=== PATIENT | female | born 1995 | race Caucasian/White ===

== ENCOUNTER 2017-03-08 14:16 | Emergency (ER) | payer OTHER ==
[2017-03-08 14:22] VITALS: BP 121/74; PULSE 83; RESP 20; TEMP 98.2; O2SAT 100
--- NOTE | 2017-03-08 14:52 | PD ---
HPI Chief Complaint: Chest Pain Time Seen by Provider: 14:30 Travel History International Travel<30 days: No Contact w/Intl Traveler<30days: No Traveled to known affect area: No History of Present Illness HPI The patient was seen and examined in the presence of the nurse. This patient complains of chest pain. Duration is 3 days. Severity is moderate. Location is left sternal border. No injury. No fever or cough. Cardiac or pulmonary disease in her history. Alleviating factors. No pleuritic nature to the pain and it is not exertional PFSH Past Medical History Medical History: Denies Significant Hx ?: Not LMP: 1 1/2 MONTHS Past Surgical History Surgical History: No Previous Surgery Social History Alcohol Use: No Tobacco Use: No Allergies-Medications (Allergen,Severity, Reaction): Coded Allergies: No Known Allergies (Unverified , 03/08/17) Reported Meds & Prescriptions Reported Meds & Active Scripts Active No Active Prescriptions or Reported Medications Review of Systems General / Constitutional: No: Fever Eyes: No: Visual changes HENT: No: Headaches Cardiovascular: Positive: Chest Pain or Discomfort Respiratory: No: Shortness of Breath Gastrointestinal: No: Abdominal Pain Genitourinary: No: Dysuria Musculoskeletal: No: Pain Skin: No Rash Neurologic: No: Weakness Psychiatric: No: Depression Endocrine: No: Polydipsia Hematologic/Lymphatic: No: Easy Bruising Physical Exam Narrative GENERAL: Well-nourished, well-developed patient in no apparent distress. SKIN: Focused skin assessment reveals no rash and nodules. Skin is Warm and dry. HEAD: Atraumatic. Normocephalic. EYES: Pupils equal and round. No scleral icterus. No injection or drainage. ENT: No nasal bleeding or discharge. Mucous membranes pink and moist. NECK: Trachea midline. No JVD. CARDIOVASCULAR: Regular rate and rhythm. No murmur appreciated. RESPIRATORY: No accessory muscle use. Clear to auscultation. Breath sounds equal bilaterally. GASTROINTESTINAL: Abdomen soft, non-tender, nondistended. Hepatic and splenic margins not palpable. MUSCULOSKELETAL: No obvious deformities. No clubbing. No cyanosis. No edema. NEUROLOGICAL: Awake and alert. No obvious cranial nerve deficits. Motor grossly within normal limits. Normal speech. PSYCHIATRIC: Appropriate mood and affect; insight and judgment normal. Data Data Last Documented VS Vital Signs Date Time Temp Pulse Resp B/P Pulse Ox O2 Delivery O2 Flow Rate FiO2 03/08/17 14:22 98.2 83 20 121/74 100 Orders Electrocardiogram (03/08/17 ) Chest, Single Ap (03/08/17 ) [facility] Medical Decision Making Medical Screen Exam Complete: Yes Emergency Medical Condition: Yes Medical Record Reviewed: Yes Differential Diagnosis Differential diagnosis includes UT, angina, pericarditis, pleurisy, GERD, anxiety. Narrative Course I have reviewed the patient's electronic medical record. I reviewed her EKG shows sinus rhythm without ST elevation or ectopy I reviewed her chest x-ray is normal Workup here is negative. She stable for outpatient follow-up Diagnosis Primary Impression: Chest pain Qualified Code: R07.9 - Chest pain, unspecified type Additional Instructions: The patient was advised to follow up with their physician and return if they worsen. Med/Other Pt SpecificInfo: Other Scripts No Active Prescriptions or Reported Meds Disposition: 01 DISCHARGE HOME Condition: Stable Malcom Chavez MD Mar 08, 2017 14:52
--- NOTE | 2017-03-08 15:31 | RADRPT ---
EXAM DATE/TIME: 03/08/2017 14:58 [facility] COMPARISON: No previous studies available for comparison. INDICATIONS : Left chest pain. MEDICAL HISTORY : None. SURGICAL HISTORY : None. ENCOUNTER: Initial ACUITY: 3 days PAIN SCORE: 5/10 LOCATION: Left chest FINDINGS: A single view of the chest demonstrates the lungs to be symmetrically aerated without evidence of mas s, infiltrate or effusion. The cardiomediastinal contours are unremarkable. Osseous structures are intact. CONCLUSION: No acute disease. Miguel Camargo MD FACR on March 08, 2017 at 15:29 Board Certified Radiologist. This report was verified electronically.
--- NOTE | 2017-03-09 16:46 | EKG ---
Date Performed: 03/08/2017 Time Performed: 15:23:34 PTAGE: 21 years EKG: Sinus rhythm NORMAL ECG NO PREVIOUS TRACING DOCTOR: Chapo Stoll Interpretating Date/Time 03/09/2017 16:45:24
== END 2017-03-08 15:59 | disposition home or self-care (01) ==
LOC: PHED 14:16
DX: R07.9 Chest pain, unspecified (principal)
CPT/HCPCS: 71010; 93005; 99284